=== PATIENT | male | born 1985 ===

== ENCOUNTER → 2020-06-16 | Outpatient (CLI) | payer BC, OTHER ==
[~2020-06-16] MED LIST: CEPH500 PO; DOCSEN; HYDACE5; RXTRAM50 PO; SILSUL1TC TOP; SULTRIDS PO
== END | disposition home or self-care (01) ==
LOC: LAB EV 16:00 → LAB SHORT 16:00
DX: J02.9 Acute pharyngitis, unspecified (principal); Z20.828 Contact with and (suspected) exposure to other viral communicable diseases
CPT/HCPCS: 87081; U0003